=== PATIENT | male | born 1975 | race Caucasian/White ===

== ENCOUNTER 2021-04-01 23:00 | Emergency (ER) | payer BC, SELFPAY ==
[2021-04-01 23:02] VITALS: BP 155/99; PULSE 77; RESP 18; TEMP 36.7; O2SAT 98; BMI 29.4
[2021-04-01 23:12] VITALS: BMI 29.4
--- NOTE | 2021-04-01 23:13 | CT_ITS ---
PROCEDURE INFORMATION: Exam: CT Abdomen And Pelvis With Contrast Exam date and time: 04/01/2021 11:13 PM Age: 45 years old Clinical indication: Abdominal pain; Generalized; Prior surgery; Additional info: Upper abd pain, back pain with n/v TECHNIQUE: Imaging protocol: Computed tomography of the abdomen and pelvis with contrast. Radiation optimization: All CT scans at this facility use at least one of these dose optimization techniques: automated exposure control; mA and/or kV adjustment per patient size (includes targeted exams where dose is matched to clinical indication); or iterative reconstruction. Contrast material: ISOVUE; Contrast volume: 75 ml; Contrast route: IV; COMPARISON: No relevant prior studies available. FINDINGS: Lungs: Left lower lobe 2 calcified granulomas. Liver: Normal. No mass. Gallbladder and bile ducts: Multiple dependently layering hyperattenuating structures are noted within the gallbladder fossa without wall thickening, or pericholecystic fluid. Pancreas: Normal. No ductal dilation. Spleen: Normal. No splenomegaly. Adrenal glands: Normal. No mass. Kidneys and ureters: Normal. No hydronephrosis. Stomach and bowel: Unremarkable. No obstruction. No mucosal thickening. Appendix: No evidence of appendicitis. Intraperitoneal space: Unremarkable. No free air. No significant fluid collection. Vasculature: Unremarkable. No abdominal aortic aneurysm. Lymph nodes: Unremarkable. No enlarged lymph nodes. Urinary bladder: Unremarkable as visualized. Reproductive: Unremarkable as visualized. Bones/joints: Unremarkable. No acute fracture. Soft tissues: Normal. IMPRESSION: 1. Cholelithiasis without CT evidence of cholecystitis. 2. No CT findings that explain patient's symptoms.
[2021-04-01 23:31] LABS: Alanine Aminotransferase 49 U/L (12-78); Albumin Level 4.9 g/dl (3.5-5.0); Albumin/Globulin Ratio 1.9 (1.1-1.8); Alkaline Phosphatase 79 U/L (38-126); Amylase 86 U/L (30-110); Anion Gap 10.1 mEq/L (5-15); Aspartate Amino Transferase 38 U/L (17-59); Bilirubin,Total 0.6 mg/dl (0.2-1.3); Blood Urea Nitrogen 17 mg/dl (9-20); Calcium 9.5 mg/dl (8.4-10.2); Carbon Dioxide 31 mmol/L (22.0-30.0); Chloride 99 mmol/L (98-107); Creatinine Clearance Estimated 113 mL/min (50-200); Estimated Glomerular Filt Rate 73 ml/min (>60); GFR (African American) 88 ML/MIN (>60); Globulin 2.6 g/dL (1.3-3.2); Glucose 119 mg/dl (74-100); Lipase 89 U/L (23-300); Potassium 4.1 mmoL/L (3.5-5.1); Sodium 136 mmol/L (136-145); Total Protein,Serum 7.5 g/dl (6.3-8.2)
[2021-04-01 23:35] LABS: Microscopic, Urine URINE MICROSCOPIC (MICROSCOPIC)
[2021-04-01 23:36] LABS: Basophils # 0.4 K/mm3 (0-0.2); Basophils % 3.5 % (0.1-2.0); C-Reactive Protein 1.2 mg/L (0-4); Eosinophils # 0.1 K/mm3 (0.0-0.4); Eosinophils % 0.8 % (0.1-12.0); Hematocrit 51.2 % (42.0-52.0); Hemoglobin 16.4 g/dL (14.1-18.0); Lymphocytes # 0.7 K/mm3 (0.7-4.5); Lymphocytes % 7.1 % (10-50); Mean Corpuscular HGB Conc 31.9 g/dL (31.8-35.4); Mean Corpuscular Hemoglobin 30.5 pg (27.0-31.2); Mean Corpuscular Volume 95.4 fl (80-94); Mean Platelet Volume 8.2 fl (7.4-10.4); Monocytes # 0.3 K/mm3 (0.1-1.0); Monocytes % 3.5 % (1.7-9.3); Neutrophils # 8.5 K/mm3 (1.8-7.8); Neutrophils % 85.1 % (37.0-80.0); Platelet Count 290 K/mm3 (142-424); Red Blood Count 5.37 M/mm3 (4.60-6.20); Red Cell Distribution Width 12.9 % (11.5-17.5)
[2021-04-01 23:37] LABS: MANUAL DIFFERENTIAL MANUAL DIFFERENTIAL (MANUAL DIFF)
[2021-04-01 23:38] LABS: Appearance,Urine CLEAR (Clear); Bilirubin,Urine Negative (Negative); Blood, Urine Negative (Negative); Color,Urine YELLOW (Yellow); Glucose,Urine (UA) Negative (Negative); Ketones,Urine Negative (Negative); Leukocyte Esterase,Urine Negative (Negative); Nitrate,Urine Negative (Negative); Protein,Urine Negative (Negative); Specific Gravity, Urine >= 1.030 (1.005-1.030); Urobilinogen,Urine 0.2 EU/dl (0.2)
[2021-04-01 23:50] LABS: Procalcitonin 0.042 ng/mL (0.0-2.0)
[2021-04-01 23:51] LABS: Lymphocytes % 10 % (10-50); Neutrophils % 83 % (42-76); Platelet Estimate Normal; RBC Morphology Normal; Total Cells Counted 100
[2021-04-01 23:56] LABS: Amorphous Sediment,Urine Trace /lpf
[2021-04-02] LABS: Erythrocyte Sedimentation Rate 1 mm/hr (0-15)
--- NOTE | 2021-04-02 00:33 | HMH.EDNVD ---
ED Disposition Clinical Impression: Cholelithiasis Qualifiers: Cholelithiasis location: gallbladder Cholecystitis presence: without cholecystitis Biliary obstruction: without biliary obstruction Qualified Code(s): K80.20 - Calculus of gallbladder without cholecystitis without obstruction Disposition: Home, Self-Care Condition on Discharge: Good Instructions: DI for Gallstones Additional Instructions: see pcp for follow up Referrals: Wes Muller [Primary Care Provider] - - Critical Care Critical Care Time: No Attestation: On 04/01/21, the high probability of a clinically significant, sudden or life threatening deterioration of the following system(s) required my full and direct attention, intervention and personal management. The time I documented below is in addition to time spent performing reported procedures but includes the following listed in this critical care notation. Medical Decision Making - Medical Records Medical records reviewed: Yes: I reviewed the patient's medical records. - Jarred Inquiry Pt receiving controlled substance: No Vital Signs: 04/01/21 23:02 Temperature 98.0 F Temperature Source Oral Pulse Rate [Right] 77 Respiratory Rate 18 Blood Pressure [Right Arm] 155/99 H Blood Pressure Mean [Right Arm] 117 02 Sat by Pulse Oximetry 98 Oxygen Delivery Method Room Air - Lab Data Lab results reviewed: Yes: I reviewed the patient's lab results. Lab Results 04/01/21 23:12: WBC 10.0, RBC 5.37, Hgb 16.4, Hct 51.2, MCV 95.4 H, MCH 30.5, MCHC 31.9, RDW 12.9, Plt Count 290, MPV 8.2, Neut % (Auto) 85.1 H, Lymph % (Auto) 7.1 L, [place] % (Auto) 3.5, Eos % (Auto) 0.8, Baso % (Auto) 3.5 H, Neut # (Auto) 8.5 H, Lymph # (Auto) 0.7, [place] # (Auto) 0.3, Eos # (Auto) 0.1, Baso # (Auto) 0.4 H, Total Counted 100, Neutrophils % (Manual) 83 H, Band Neutrophils % 7.0, Lymphocytes % (Manual) 10, Platelet Estimate Normal, RBC Morphology Normal, ESR 1 04/01/21 23:12: Sodium 136, Potassium 4.1, Chloride 99, Carbon Dioxide 31 H, Anion Gap 10.1, BUN 17, Creatinine 1.10, Estimated Creat Clear 113, Estimated GFR 73, Est GFR ( Amer) 88, Glucose 119 H, Calcium 9.5, Total Bilirubin 0.6, AST 38, ALT 49, Alkaline Phosphatase 79, C-Reactive Protein 1.2, Total Protein 7.5, Albumin 4.9, Globulin 2.6, Albumin/Globulin Ratio 1.9 H, Amylase 86, Lipase 89, Procalcitonin 0.042 04/01/21 23:14: Urine Color Yellow, Urine Appearance Clear, Urine pH 6.0, Ur Specific [place] >= 1.030, Urine Protein Negative, Urine Glucose (UA) Negative, Urine Ketones Negative, Urine Blood Negative, Urine Nitrate Negative, Urine Bilirubin Negative, Urine Urobilinogen 0.2, Ur Leukocyte Esterase Negative, Amorphous Sediment Trace Result diagrams: 04/01/21 23:12 04/01/21 23:12 Orders (Tests/Meds): ED MEDICATIONS Generic Name Dose Route Start Last Admin Trade Name Freq PRN Reason Stop Dose Admin Sodium Chloride 1,000 mls @ 999 mls/hr 04/01/21 23:30 04/01/21 23:59 Sod Chlor 0.9% 1000ml Bag IV 04/02/21 00:30 999 mls/hr .Q1H1M CHERYLE Administration Sodium Chloride 8 ml 04/01/21 23:23 Sodium Chloride 0.9% 10ml Vial IV 05/01/21 23:22 NEEDED PRN dilute pepcid Discontinued Medications Generic Name Dose Route Start Last Admin Trade Name Freq PRN Reason Stop Dose Admin Famotidine 20 mg 04/01/21 23:23 04/01/21 23:59 Famotidine 20mg/2ml Vial IV 04/01/21 23:24 20 mg ONCE ONE Administration Iopamidol 75 ml 04/01/21 23:48 04/01/21 23:49 Iopamidol-370 (76%);100ml Bottle IV 04/01/21 23:49 75 ml ONCE ONE Administration Ketorolac Tromethamine 30 mg 04/01/21 23:23 04/01/21 23:59 Ketorolac 30mg/Ml Vial IV 04/01/21 23:24 30 mg ONCE ONE Administration Metoclopramide HCl 10 mg 04/01/21 23:23 04/01/21 23:59 Metoclopramide Hcl 10mg/2ml Vial IVP 04/01/21 23:24 10 mg ONCE ONE Administration Ondansetron HCl 4 mg 04/01/21 23:23 04/01/21 23:59 Ondansetron 4mg/2ml Vial IV 04/01/21 23:24 4
[2021-04-02 01:08] VITALS: BP 155/99; PULSE 77; RESP 20; TEMP 37.1; O2SAT 99
== END 2021-04-02 01:14 | disposition home or self-care (01) ==
PROVIDERS: Emergency Provider Emergency Medicine; PCP Family Medicine
DX: K80.20 Calculus of gallbladder without cholecystitis without obstruction (principal)
CPT/HCPCS: 74177; 80053; 81001; 82150; 83690; 84145; 85007; 85025; 85651; 86140; 96365; 96375; 99283; J2405; Q9967

== ENCOUNTER 2022-05-30 15:40 | Emergency (ER) | payer OTHER, SELFPAY ==
--- NOTE | 2022-05-30 16:06 | XR_ITS ---
PROCEDURE INFORMATION: Exam: XR Left Elbow Exam date and time: 05/30/2022 4:19 PM Age: 46 years old Clinical indication: Pain; Elbow; Left; Additional info: [place] pop at work TECHNIQUE: Imaging protocol: Radiologic exam of the left elbow. Views: 3 or more views. COMPARISON: CR XR HUMERUS LT 05/30/2022 4:16 PM FINDINGS: Bones/joints: No acute fracture or dislocation. Olecranon spur noted. No joint effusion. Soft tissues: Unremarkable. IMPRESSION: No acute osseous abnormality.
--- NOTE | 2022-05-30 16:06 | XR_ITS ---
PROCEDURE INFORMATION: Exam: XR Left Forearm Exam date and time: 05/30/2022 4:20 PM Age: 46 years old Clinical indication: Pain; Elbow; Left; Additional info: [place] pop at work TECHNIQUE: Imaging protocol: Radiologic exam of the left forearm. Views: 2 views. COMPARISON: CR Elbow L 05/30/2022 4:19 PM FINDINGS: Bones/joints: No acute fracture or dislocation. Olecranon spur noted. Soft tissues: Unremarkable. IMPRESSION: No acute osseous abnormality.
--- NOTE | 2022-05-30 16:06 | XR_ITS ---
PROCEDURE INFORMATION: Exam: XR Left Humerus Exam date and time: 05/30/2022 4:16 PM Age: 46 years old Clinical indication: Pain; Elbow; Left; Additional info: [place] pop at work TECHNIQUE: Imaging protocol: Radiologic exam of the left humerus. Views: 2 or more views. COMPARISON: No relevant prior studies available. FINDINGS: Bones/joints: No acute fracture or dislocation. Degenerative changes of the AC joint. Soft tissues: Normal. IMPRESSION: No acute abnormality.
[2022-05-30 16:10] VITALS: BP 139/85; PULSE 92; RESP 20; TEMP 36.6; O2SAT 99; BMI 29.4
--- NOTE | 2022-05-30 16:52 | EXP.UTC ---
Discharge Plan Disposition Patient Disposition: Home, Self-Care Condition: Good Prescriptions Prescriptions: No Action diclofenac sodium 75 MG tablet,delayed release (DR/EC) 75 mg PO BID bupropion HCl 300 MG tablet extended release 24 hr 300 mg PO DAILY Referrals Follow up/Referrals: Lavon White DO [Staff Physician] - See instructions (Call office tomorrow for appointment on ) Wes Muller [Primary Care Provider] - See instructions Activity Restrictions/Add. Instructions Additional Instructions/Restrictions: *RICE, Rest the extremity, Ice 15-20 minutes 3-4 times daily, Compress- wear the oscar wrap as discussed as much as possible to help reduce swelling and pain, Elevate the extremity when at rest *Sling is for support and help control swelling, Be sure that is not to tight but not to loose either *Elevate when resting? *Diclofenac as prescribed for pain an inflammation. If need something more can take Tylenol in between doses of Ibuprofen to help Immediately follow up with your family doctor for new or worsening of symptoms, or no noticeable improvement over the next 3-[address] Salgado office tomorrow for appointment on Clinical Impressions Clinical Impression: Biceps muscle tear Stand Alone Forms Stand Alone Forms: Work/School Release Instructions Patient Instructions: How to Use a Sling, How To Perform RICE (Rest, Ice, Compress, Elevate) Discharge ED Provider: Latoya Meza [facility] HPI General Stated complaint: WC [id number] injured L forearm Mode of Arrival: Ambulatory Source of Information: Patient Limitations: No Limitations Time Seen by Provider: 05/30/22 16:59 Description of Symptoms (Recalled from Triage Doc. by RN): PT ws at work and heard a pop sound. States that from elbow there is pain and down if feels numb. Works a [employer]. 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 in his left upper arm States that he started having pain in his left elbow and his forearm area felt tingly States that he feels like he may have torn something in his left upper arm Related Data Home Medications Medication Instructions Recorded Confirmed bupropion HCl 300 mg 24 hr tablet, 300 mg PO DAILY Depression 04/01/21 05/30/22 extended release diclofenac sodium 75 mg 75 mg PO BID Pain 04/01/21 05/30/22 tablet,delayed release Allergies Allergy/AdvReac Type Severity Reaction Status Date / Time No Known Allergies Allergy Verified 05/30/22 16:33 Worker's Comp Is this a Worker's Comp case?: Yes Is this an [facility] Worker's Comp?: No Is this a [facility] Worker's Comp?: No [facility] Disclaimer: The information contained in this section may have been updated after the patient was seen, as this information can be updated by other users. Social History Smoking Status: Unknown if ever smoked alcohol intake: never current occupational status: employed Travel in the last 8 weeks: None ROS Obtained: Yes All systems reviewed & no additional complaints except as documented and Yes Systems reviewed as appropriate & no additional complaints except as documented Cardiovascular Cardiovascular: Reports system reviewed and no additional complaints, except as documented and Reports as per HPI Respiratory Respiratory: Reports system reviewed and no additional complaints, except as documented and Reports as per HPI Gastrointestinal Gastrointestingal: Reports system reviewed and no additional complaints, except as documented and as per HPI Musculoskeletal Musculoskeletal: Reports system reviewed and no additional complaints, except as documented and Reports
[2022-05-30 17:37] VITALS: BP 139/85; PULSE 92; RESP 20; TEMP 36.6; O2SAT 99
== END 2022-05-30 17:36 | disposition home or self-care (01) ==
PROVIDERS: Emergency Provider Nurse Practitioner; PCP Family Medicine
DX: S46.212A Strain of muscle, fascia and tendon of other parts of biceps, left arm, initial encounter (principal); X50.0XXA Overexertion from strenuous movement or load, initial encounter
CPT/HCPCS: 73060; 73080; 73090; 99212; 99214; G0463

== ENCOUNTER → 2022-06-05 06:52 | Outpatient (CLI) | payer OTHER, SELFPAY ==
--- NOTE | 2022-06-05 06:53 | MR_ITS ---
FINAL REPORT CLINICAL HISTORY: possible bicept tear, lifting and felt a pop. tender posterior and lateral elbow. FINDINGS: Multiplanar MR imaging of the left elbow was performed without contrast. The bony structures are intact without evidence of fracture, bone bruise or marrow edema. There is no evidence of osteochondral lesion. The ligaments appear intact. The common extensor tendon is intact. The common flexor tendon is intact. There is a partial tear at the insertion of the biceps tendon with surrounding edema or hemorrhage. The distal triceps tendon is intact. The brachialis tendon is intact. The musculature has an unremarkable appearance. No soft tissue mass or cyst is identified. There is a small joint effusion. No focal abnormality is identified of the ulnar nerve. IMPRESSION: Partial tear at the insertion of the biceps tendon with surrounding edema or hemorrhage. Small joint effusion. Reviewed, Interpreted and Dictated by Louie Montelongo III, MD Transcribed by Cece Mulligan Authenticated and [facility]
== END ==
PROVIDERS: PCP Family Medicine; Visit Provider Orthopaedic Surgery
DX: S46.212A Strain of muscle, fascia and tendon of other parts of biceps, left arm, initial encounter (principal)
CPT/HCPCS: 73221